=== PATIENT | male | born 1975 | race Caucasian/White ===

== ENCOUNTER 2018-12-30 09:08 | Emergency (ER) | payer OTHER ==
[~2018-12-30] VITALS: Ht 170.2 cm; Wt 109.8 kg
[2018-12-30 09:32] VITALS: BP 133/92
[2018-12-30] MEDS ORDERED: ketorolac tromethamine 15mg/ml inj. IM ONE (10:30)
[2018-12-30] MEDS ORDERED: CELE-193 PO (10:34)
[2018-12-30] MEDS ORDERED: TRAM50TA2 PO (10:34)
== END 2018-12-30 11:46 | disposition home or self-care (01) ==
LOC: ER 09:08
DX: M54.5 Low back pain (principal); G89.29 Other chronic pain; Z88.1 Allergy status to other antibiotic agents
CPT/HCPCS: 96372; 99283; J1885

== ENCOUNTER 2019-03-29 14:01 | Emergency (ER) | payer MEDICAID, OTHER ==
[~2019-03-29] VITALS: Ht 167.6 cm; Wt 113.0 kg
[2019-03-29 14:32] VITALS: BP 138/99
[2019-03-29 15:13] LABS: CLARITY,URINE CLEAR (Clear); COLOR,URINE YELLOW (Yellow); GLUCOSE, URINE NEGATIVE (Neg); KETONES,URINE NEGATIVE (Neg); LEUKOCYTE ESTERASE ,URINE NEGATIVE (Neg); NITRITES, URINE NEGATIVE (Neg); OCCULT BLOOD,URINE NEGATIVE (Neg); PROTEIN,URINE NEGATIVE (Neg)
[2019-03-29 15:22] LABS: UA COLLECTION TYPE CLN CATCH MIDSTREAM
== END 2019-03-29 16:07 | disposition home or self-care (01) ==
LOC: ER 14:01
DX: R33.9 Retention of urine, unspecified (principal); M54.9 Dorsalgia, unspecified; G89.29 Other chronic pain; Z88.1 Allergy status to other antibiotic agents; Z88.8 Allergy status to other drugs, medicaments and biological substances
CPT/HCPCS: 81003; 99283

== ENCOUNTER 2019-11-06 21:19 | Emergency (ER) | payer OTHER ==
[~2019-11-06] VITALS: Ht 170.2 cm; Wt 113.5 kg
--- NOTE | 2019-11-06 22:09 | NUR ---
Provider at bedside with the patient at this time.
[2019-11-06] MEDS ORDERED: PRED20TA PO (22:13)
[2019-11-06] MEDS ORDERED: IBUP-1984 PO (22:13)
== END 2019-11-06 22:25 | disposition home or self-care (01) ==
LOC: ER 21:20
DX: G56.02 Carpal tunnel syndrome, left upper limb (principal); G89.29 Other chronic pain; Z88.1 Allergy status to other antibiotic agents; Z79.899 Other long term (current) drug therapy
CPT/HCPCS: 99283

== ENCOUNTER 2020-02-29 18:26 | Emergency (ER) | payer MEDICAID, OTHER ==
[~2020-02-29] VITALS: Ht 167.6 cm; Wt 113.6 kg
[2020-02-29 19:20] VITALS: BP 148/89
== END 2020-02-29 19:10 | disposition home or self-care (01) ==
LOC: ER 18:26
DX: M79.674 Pain in right toe(s) (principal); I10 Essential (primary) hypertension; G89.29 Other chronic pain; Z72.89 Other problems related to lifestyle; Z88.1 Allergy status to other antibiotic agents
CPT/HCPCS: 73630; 99283

== ENCOUNTER 2020-05-19 20:38 | Emergency (ER) | payer MEDICAID, OTHER ==
[~2020-05-19] VITALS: Ht 167.6 cm; Wt 119.1 kg
[2020-05-19 22:16] LABS: CLARITY,URINE CLEAR (Clear); COLOR,URINE YELLOW (Yellow); GLUCOSE, URINE NEGATIVE (Neg); KETONES,URINE TRACE mg/dl (Neg); LEUKOCYTE ESTERASE ,URINE NEGATIVE (Neg); NITRITES, URINE NEGATIVE (Neg); OCCULT BLOOD,URINE NEGATIVE (Neg); PROTEIN,URINE 30 mg/dl (Neg)
[2020-05-19 22:17] LABS: UA COLLECTION TYPE CLN CATCH MIDSTREAM
[2020-05-19 22:20] LABS: BACTERIA,URINE FEW /HPF (Neg); RBC,URINE 0-2 /HPF (0-2); SQUAMOUS EPITHELIAL CELL,UR FEW /LPF (FEW); WBC,URINE 0-4 /HPF (0-4)
[2020-05-19 23:31] VITALS: BP 161/101
[2020-05-19] MEDS ORDERED: NITR100C6 PO (23:38)
== END 2020-05-19 23:51 | disposition home or self-care (01) ==
LOC: ER 20:39
DX: R30.0 Dysuria (principal); I10 Essential (primary) hypertension; E66.9 Obesity, unspecified; G89.29 Other chronic pain; Z88.1 Allergy status to other antibiotic agents
CPT/HCPCS: 81001; 99283

== ENCOUNTER 2021-04-30 22:01 | Emergency (ER) | payer MEDICAID, OTHER ==
[~2021-04-30] VITALS: Ht 170.2 cm; Wt 112.7 kg
[~2021-04-30 22:01] MED LIST: NITR100C6 PO
[2021-04-30 22:17] VITALS: BP 131/85
[2021-04-30] MEDS ORDERED: CLIN-97 PO (23:23)
== END 2021-04-30 23:48 | disposition home or self-care (01) ==
LOC: ER 22:02
DX: K08.89 Other specified disorders of teeth and supporting structures (principal); E11.9 Type 2 diabetes mellitus without complications; I10 Essential (primary) hypertension; G89.29 Other chronic pain; Z72.89 Other problems related to lifestyle
CPT/HCPCS: 99283